=== PATIENT | female | born 1995 | race Hispanic/Latino ===

== ENCOUNTER 2018-01-04 13:19 | Emergency (ER) | payer SELFPAY, OTHER ==
[2018-01-04 14:11] LABS: #Eosinphils 0.5 thou/uL (0.0-0.7); #Lymphocytes 1.1 thou/uL (1.20-3.40); #Monocytes 0.3 thou/uL (0.11-0.59); #Neutrophils 2.3 thou/uL (1.40-6.50); %Basophils 1.1 % (0.0-1.0); %Eosinophils 11.3 % (0.0-10.0); %Lymphocytes 26.2 % (21.0-51.0); %Monocytes 6.8 % (0.0-10.0); %Neutrophils 54.7 % (42.0-75.0); Hemoglobin 12.5 g/dL (12.0-16.0); Mean Corpuscular HGB CONC 33.6 g/dL (32.0-36.0); Mean Corpuscular Hemoglobin 31.2 pg (27.0-31.0); Mean Corpuscular Volume 92.9 fl (81.0-99.0); Mean Platelet Volume 7.7 fL (7.4-10.4); Platelet Count 272 thou/uL (130-400); RBC Distribution Width 12.2 % (11.5-14.5); White Blood Cell (WBC) Count 4.2 thou/uL (4.8-10.8)
[2018-01-04 14:17] LABS: Bilirubin Negative (Negative); Blood, Urine Large (Negative); Clarity CLEAR (Clear); Glucose, Urine (Dipstick) Negative (Negative); Leukocyte Negative (Negative); Nitrite Negative (Negative); Protein, Urine (Dipstick) Negative (Neg-Trace); Specific Gravity, Urine 1.007 (1.002-1.036); Urobilinogen 0.2 mg/dL (0.2-1.0)
[2018-01-04 14:22] LABS: Bacteria/HPF Rare-Few HPF (None Seen); Hyaline Casts/LPF 0-3 HYALINE CAST LPF (0-3 Hyaline); Pathc Cast-AUWi Flag 0.27 (0-2.49); RBC/HPF 0-3 HPF (0-3); Squamous Epithelial 0-3 HPF (0-3); WBC/HPF 0-3 HPF (0-3)
--- NOTE | 2018-01-04 14:56 | ULT ---
PELVIC ULTRASOUND WITH DOPPLER: (Transabdominal, transvaginal, Lugo scale, color flow, and spectral Doppler) Date: 01/04/18 HISTORY: Vaginal bleeding. FINDINGS: The uterus measures 7.9 x 4.2 x 6.9 cm. A single intrauterine gestation is seen with measurements cor responding to an estimated gestational age of 7 weeks and 5 days. The crown-rump length measures 0.94 cm and gestational sac diameter measures 3.24 cm. A yolk sac is not visualized. No heart tones are identified. No free fluid is seen in the cul-de-sac. The right ovary is visualized and demonstrates flow. The lef t ovary is not visualized. IMPRESSION: Single intrauterine gestation, 7 weeks and 5 days estimated gestational age, with findings suggestive of first trimester demise. Correlation with serial serum beta HCGs and follow-up ultrasound is recommended. POS: NIKI
== END 2018-01-04 16:24 | disposition home or self-care (01) ==
LOC: ERS 13:19
DX: O20.0 Threatened abortion (principal); O99.341 Other mental disorders complicating pregnancy, first trimester; F31.9 Bipolar disorder, unspecified
CPT/HCPCS: 36415; 76856; 81003; 81015; 84702; 85025; 86900; 86901

== ENCOUNTER 2018-01-05 17:58 | Emergency (ER) | payer SELFPAY ==
[2018-01-05 18:47] LABS: #Eosinphils 0.4 thou/uL (0.0-0.7); #Lymphocytes 1.5 thou/uL (1.20-3.40); #Monocytes 0.5 thou/uL (0.11-0.59); %Basophils 0.5 % (0.0-1.0); %Eosinophils 6.8 % (0.0-10.0); %Lymphocytes 23.6 % (21.0-51.0); %Monocytes 7.1 % (0.0-10.0); Hemoglobin 12.1 g/dL (12.0-16.0); Mean Corpuscular HGB CONC 33.9 g/dL (32.0-36.0); Mean Corpuscular Volume 94.3 fl (81.0-99.0); Platelet Count 272 thou/uL (130-400); RBC Distribution Width 12.4 % (11.5-14.5); Red Blood Cell (RBC) Count 3.79 mill/uL (4.20-5.40); White Blood Cell (WBC) Count 6.5 thou/uL (4.8-10.8)
[2018-01-05] MEDS ORDERED: Ondansetron HCl/PF 4 MG/2 ML Vial ONE (19:17)
[2018-01-05 19:30] LABS: Bilirubin Negative (Negative); Blood, Urine Large (Negative); Clarity CLOUDY (Clear); Glucose, Urine (Dipstick) Negative (Negative); Leukocyte Negative (Negative); Nitrite Negative (Negative); Protein, Urine (Dipstick) 30 mg/dL (Neg-Trace); pH, Urine 7.5 (5.0-9.0)
[2018-01-05 19:33] LABS: Bacteria/HPF 1+ HPF (None Seen); Hyaline Casts/LPF 0-3 HYALINE CAST LPF (0-3 Hyaline); Pathc Cast-AUWi Flag 0.13 (0-2.49)
[2018-01-05 19:34] LABS: Yeast-AUWi Flag 28.7 (0-25.0)
[2018-01-05 19:42] LABS: Yeast-All Forms None Seen HPF (None Seen)
== END 2018-01-05 19:52 | disposition home or self-care (01) ==
LOC: ERS 17:58
DX: O03.9 Complete or unspecified spontaneous abortion without complication (principal); J45.909 Unspecified asthma, uncomplicated
CPT/HCPCS: 36415; 81003; 81015; 84702; 85025; 86850; 86900; 86901; 96374; 96375; J2270; J2405

== ENCOUNTER 2018-01-28 21:30 | Emergency (ER) | payer SELFPAY, OTHER ==
[2018-01-28 22:28] LABS: #Eosinphils 0.3 thou/uL (0.0-0.7); #Lymphocytes 1.5 thou/uL (1.20-3.40); #Monocytes 0.4 thou/uL (0.11-0.59); #Neutrophils 3.2 thou/uL (1.40-6.50); %Basophils 0.7 % (0.0-1.0); %Lymphocytes 27.4 % (21.0-51.0); %Monocytes 7.2 % (0.0-10.0); %Neutrophils 59.8 % (42.0-75.0); Hemoglobin 11.6 g/dL (12.0-16.0); Mean Corpuscular HGB CONC 34.1 g/dL (32.0-36.0); Mean Corpuscular Hemoglobin 31.2 pg (27.0-31.0); Mean Corpuscular Volume 91.5 fl (81.0-99.0); Mean Platelet Volume 7.3 fL (7.4-10.4); Platelet Count 289 thou/uL (130-400); RBC Distribution Width 12.1 % (11.5-14.5); Red Blood Cell (RBC) Count 3.71 mill/uL (4.20-5.40); White Blood Cell (WBC) Count 5.4 thou/uL (4.8-10.8)
[2018-01-28 22:32] LABS: Bilirubin Negative (Negative); Blood, Urine Large (Negative); Clarity CLOUDY (Clear); Glucose, Urine (Dipstick) Negative (Negative); Leukocyte Small (Negative); Nitrite Negative (Negative); Protein, Urine (Dipstick) 30 mg/dL (Neg-Trace); Specific Gravity, Urine 1.019 (1.002-1.036)
[2018-01-28 22:34] LABS: Bacteria/HPF 1+ HPF (None Seen); Hyaline Casts/LPF 0-3 HYALINE CAST LPF (0-3 Hyaline); Pathc Cast-AUWi Flag 0.27 (0-2.49); Pregnancy Test - Urine (BHCG) POSITIVE (Negative); Pregu Control Background? CLEAR/WHITE (CLR/WHITE); Pregu Control Bar Appear? YES (CONTROL BAR); RBC/HPF GREATER THAN 50-TNTC HPF (0-3); Specific Gravity 1.019 (1.002-1.036)
[2018-01-28 22:48] LABS: ALT (SGPT) 11 U/L (8-55); AST (SGOT) 14 U/L (5-34); Albumin 4.6 g/dL (3.5-5.0); Alkaline Phosphatase 60 U/L (40-150); Anion Gap 12 mmol/L (10-20); BUN (Urea Nitrogen) 9 mg/dL (7.0-18.7); Bilirubin, Total 0.3 mg/dL (0.2-1.2); Calc. Creatinine Clearance 0 mL/min (70-130); Calcium 9.7 mg/dL (7.8-10.44); Carbon Dioxide 25 mmol/L (22-29); Chloride 105 mmol/L (98-107); Estimated GFR-MDRD Greater than 90; Globulin 3.1 g/dL (2.4-3.5); Glucose 83 mg/dL (70-105); Lipase 33 U/L (8-78); Potassium 3.9 mmol/L (3.5-5.1); Protein, Total 7.7 g/dL (6.0-8.3); Sodium 138 mmol/L (136-145)
--- NOTE | 2018-01-29 00:01 | ULT ---
PELVIC ULTRASOUND Technique: Transabdominal and endovaginal ultrasound of the pelvis performed. History: Vaginal bleeding. Recently diagnosed with spontaneous AB. Positive test. FINDINGS: Uterus has a normal appearance. The endometrial stripe is upper normal at 9-10 mm. Both ovaries are i dentified and appear unremarkable. No evidence of intrauterine identified. Color doppler wi th spectral analysis demonstrates blood flow to both ovaries. There is free fluid in the cul-de-sac. Color doppler with spectral analysis demonstrates blood flow to both ovaries. IMPRESSION: No evidence of intrauterine . Free fluid in the cul-de-sac. Ectopic is not exclude d on this exam. Recommend serial HCG levels and close follow up. POS: SHIRA
== END 2018-01-29 00:33 | disposition home or self-care (01) ==
LOC: ERS 21:30
DX: O03.6 Delayed or excessive hemorrhage following complete or unspecified spontaneous abortion (principal); J45.909 Unspecified asthma, uncomplicated
CPT/HCPCS: 36415; 76856; 80053; 81003; 81015; 81025; 83690; 84702; 85025; 87086

== ENCOUNTER 2018-06-16 18:25 | Emergency (ER) | payer OTHER, SELFPAY ==
[2018-06-16 18:53] LABS: Bilirubin Negative (Negative); Blood, Urine Negative (Negative); Clarity CLEAR (Clear); Glucose, Urine (Dipstick) Negative (Negative); Leukocyte Negative (Negative); Nitrite Negative (Negative); Protein, Urine (Dipstick) Negative (Neg-Trace); Specific Gravity, Urine 1.019 (1.002-1.036); Urobilinogen 0.2 mg/dL (0.2-1.0)
[2018-06-16 18:55] LABS: Pregnancy Test - Urine (BHCG) Negative (Negative); Pregu Control Background? CLEAR/WHITE (CLR/WHITE); Pregu Control Bar Appear? YES (CONTROL BAR); Specific Gravity 1.019 (1.002-1.036)
[2018-06-16 18:56] LABS: #Eosinphils 0.4 thou/uL (0.0-0.7); #Lymphocytes 1.8 thou/uL (1.20-3.40); #Monocytes 0.5 thou/uL (0.11-0.59); #Neutrophils 3.9 thou/uL (1.40-6.50); %Basophils 0.7 % (0.0-1.0); %Eosinophils 6.5 % (0.0-10.0); %Lymphocytes 26.9 % (21.0-51.0); %Neutrophils 58.9 % (42.0-75.0); Hemoglobin 13.1 g/dL (12.0-16.0); Mean Corpuscular HGB CONC 34.7 g/dL (32.0-36.0); Mean Corpuscular Hemoglobin 30.8 pg (27.0-31.0); Mean Corpuscular Volume 88.8 fL (78.0-98.0); Mean Platelet Volume 7.6 fL (7.4-10.4); Platelet Count 247 thou/uL (130-400); Red Blood Cell (RBC) Count 4.24 mill/uL (4.20-5.40); White Blood Cell (WBC) Count 6.7 thou/uL (4.8-10.8)
[2018-06-16 19:19] LABS: ALT (SGPT) 26 U/L (8-55); AST (SGOT) 25 U/L (5-34); Albumin 4.6 g/dL (3.5-5.0); Alkaline Phosphatase 66 U/L (40-150); Anion Gap 13 mmol/L (10-20); BUN (Urea Nitrogen) 14 mg/dL (7.0-18.7); Bilirubin, Total 0.3 mg/dL (0.2-1.2); Calc. Creatinine Clearance 0 mL/min (70-130); Calcium 9.7 mg/dL (7.8-10.44); Carbon Dioxide 21 mmol/L (22-29); Chloride 107 mmol/L (98-107); Estimated GFR-MDRD Greater than 90; Globulin 3.2 g/dL (2.4-3.5); Glucose 96 mg/dL (70-105); Lipase 35 U/L (8-78); Potassium 3.8 mmol/L (3.5-5.1); Protein, Total 7.8 g/dL (6.0-8.3); Sodium 137 mmol/L (136-145)
[2018-06-16] MEDS ORDERED: Ibuprofen 200 MG TAB ONE (19:19)
--- NOTE | 2018-06-16 20:38 | ULT ---
PELVIC ULTRASOUND: History: Pelvic pain. History of right ovarian cyst. Sudden onset of right lower quadrant pain. FINDINGS: Real-time imaging of the pelvis was obtained transabdominally. This shows a uterus measuring 8.5 cm i n length. The endometrium is 6-7 mm. The right and left ovaries are normal in size and appearance. There is a mild amount of free fluid se en. DOPPLER EVALUATION WITH SPECTRAL ANALYSIS: Normal flow is shown to both adnexa. IMPRESSION: Essentially unremarkable pelvic ultrasound. POS: SHIRA
== END 2018-06-16 20:40 | disposition home or self-care (01) ==
LOC: ERS 18:25
DX: N83.201 Unspecified ovarian cyst, right side (principal); J45.909 Unspecified asthma, uncomplicated
CPT/HCPCS: 36415; 76856; 80053; 81003; 81025; 83690; 85025

== ENCOUNTER 2019-07-26 06:56 | Day surgery (SDC) | payer SELFPAY ==
[2019-07-26 07:32] VITALS: BMI 19.3
[2019-07-26] MEDS ORDERED: hydrALAZINE 20 MG/ML VIAL SLOW IVP PRN (07:48)
--- NOTE | 2019-07-26 07:51 | PDOC.EVN ---
Event Note - Event Note Event Note: OBGYN Attending Note Patient first seen by Dr Gaines Patient in Triage B Arrived in custody from skilled nursing CC: abdominal pain at 35 weeks (records not here) HPI: Patient of the [facility], currently in skilled nursing, brought for eval of "abdominal pain". 23 yo at 35 weeks 4 days by her stated EDC of 08/26, CS x1. States diffuse abdominal "burtning" but no real CTX, no VB, no LOF. No fevers, denies recent trauma. Past Surgical: CS Allergies: Amoxicillin Past med: none Physical: VSS Afebrile CX pending Monitors: 140s reactive, no ctx o toco A/P: 35 weeks pror CS with nonspecific LAP, no records here: 1. we will check UA 2. CMP 3. OB sono for dates 4. RUQ sono
[2019-07-26] MEDS ORDERED: Acetaminophen 500 MG TAB PO SCH (08:00)
--- NOTE | 2019-07-26 08:01 | PDOC.LDHP ---
Labor and Delivery H&P Chief complaint: abdominal pain HPI: 23 yo @ 35.4 wks presents from senior living for abdominal pain that began 5 minutes after she arrived. Patient at [facility] but no records available. She reports JOSIAH of 08/26. Abdominal pain began at 0100, 06/28. Pain described as lower abdominal cramping, along with feelings of abdominal burning and pain in center of abdomen. She has had this pain before but it has been a while. Denies VB, VD , dysuria, N/V, diarrhea. Tolerating PO intake well. Current gestational age (weeks): 35 Due date: 08/26/19 Grav: 3 Para: 1 Current complications: none Current medications: pre-kisha vitamins Previous surgical history: low tranverse CS Allergies/Adverse Reactions: Allergies Allergy/AdvReac Type Severity Reaction Status Date / Time amoxicillin Allergy Mild Rash Verified 07/26/19 07:29 Social history: none - Physical Exam Vital signs reviewed and normal: yes General: NAD, resting Heart: RRR Lungs: nonlabored breathing Abdomen: NTTP Extremeties: no edema FHT: category 1 (138/mod variability) [place] contractions every: no contractions - Plan Plan: observation in L&D -: Abdominal pain - symptoms nonspecific - will give tylenol for pain - pending RUQ US to rule out gallstone etiology and US for EFW for dating as well since no records available - CMP and UA ordered - nurse to perform cervical check Will monitor on L&D and follow up pending these results.
[2019-07-26 08:32] LABS: Bilirubin Negative (Negative); Blood, Urine Negative (Negative); Clarity Turbid (Clear); Glucose, Urine (Dipstick) Normal (Negative); Leukocyte 500 Leu/uL (Negative); Mucous/LPF Rare LPF (<2+); Nitrite Negative (Negative); Protein, Urine (Dipstick) 50 mg/dL (Neg-Trace)
[2019-07-26 08:50] LABS: Bacteria/HPF 3+ HPF (None Seen); Yeast-Budding Rare HPF (None Seen)
--- NOTE | 2019-07-26 09:44 | ULT ---
US Gallbladder RUQ History: Abdominal pain Comparison: Gallbladder ultrasound 2015 Findings: The pancreas is not well seen. Visualized portion of the IVC is unremarkable. Moderate right-sided hydroureteronephrosis. Cholelithiasis without cholecystitis. Common bile duct me asures 2 mm, normal. Liver measures 15.6 cm with diffuse increased echotexture. Impression: 1. Moderate right hydroureteronephrosis. 2. Cholelithiasis without cholecystitis.
--- NOTE | 2019-07-26 09:50 | ULT ---
EXAM: US OB Ltd PROVIDED CLINICAL HISTORY: Estimated weight COMPARISON: None FINDINGS: A single live intrauterine gestation in vertex presentation is demonstrated, with heart rate of 139 b pm documented. The placenta is anterior in location without evidence for previa. The cervix is obscured. Estimated gestational age based on today's examination is 36 weeks 4 days. Estimated weight is 2876 +/- 426 g. anatomic survey was not performed. Amniotic fluid appears adequate and (ZOE 13.2). biometry: BPD: 36 weeks 3 days 9.1 cm Head circumference: 37 weeks 3 days 32.9 cm Abdominal circumference: 36 weeks 0 days 32.02 cm Femur length: 36 weeks 0 days 7.01 cm IMPRESSION: Single live intrauterine gestation, 36 weeks 4 days by ultrasound.
[2019-07-26 09:58] LABS: ALT (SGPT) 7 U/L (8-55); AST (SGOT) 11 U/L (5-34); Albumin 3.5 g/dL (3.5-5.0); Alkaline Phosphatase 136 U/L (40-150); Anion Gap 12 mmol/L (10-20); BUN (Urea Nitrogen) 8 mg/dL (7.0-18.7); Bilirubin, Total 0.4 mg/dL (0.2-1.2); Calc. Creatinine Clearance 124 mL/min (70-130); Calcium 8.8 mg/dL (7.8-10.44); Carbon Dioxide 20 mmol/L (22-29); Chloride 108 mmol/L (98-107); Estimated GFR-MDRD Greater than 90; Globulin 2.6 g/dL (2.4-3.5); Glucose 72 mg/dL (70-105); Potassium 3.8 mmol/L (3.5-5.1); Protein, Total 6.1 g/dL (6.0-8.3); Sodium 136 mmol/L (136-145)
--- NOTE | 2019-07-26 10:34 | PDOC.EVN ---
Event Note - Event Note Event Note: UA showed 2+ bacteria and LE although pt did have 7-10 squamous cells. Sent for a culture and will empirically treat with Keflex 500mg PO q12h for three days. CMP wnl and abdominal US did show evidence of stones but no sign of cholecystitis, US wnl. Addendum - Attending - Attending Attestation Date/Time: 07/26/19 1041 I personally evaluated the patient and discussed the management with Dr. Anglin. I agree with the History, Examination, Assessment and Plan documented above.
== END 2019-07-26 10:25 | disposition home or self-care (01) ==
LOC: L&D/OP 06:56 → EEVIPCON 06:56 → L&D/OP 10:25
PROVIDERS: ATTEND Obstetrics & Gynecology
DX: O99.89 Other specified diseases and conditions complicating pregnancy, childbirth and the puerperium (principal); N13.30 Unspecified hydronephrosis; O99.613 Diseases of the digestive system complicating pregnancy, third trimester; K80.20 Calculus of gallbladder without cholecystitis without obstruction; Z3A.35 35 weeks gestation of pregnancy; Z88.0 Allergy status to penicillin
CPT/HCPCS: 36415; 76705; 76815; 80053; 81001; 87086; 99284

== ENCOUNTER 2019-08-05 02:00 | Day surgery (SDC) | payer OTHER ==
[2019-08-05 02:24] VITALS: BMI 29.0
--- NOTE | 2019-08-05 03:07 | PDOC.FPROB ---
FMR OB H&P: HPI - History of Present Illness Chief Complaint: vaginal discharge, labor check History of Present Illness: 23yo at 37 wks by LMP C/w 11.2wk US presents for sxs of dysuria, vaginal pruritus, and spotting x1 day. Also endorses contractions occurring approx every hour for past 3 days. States bleeding was x2 when wiping after urinating. Has h/o yeast infx during , treated with Monostat. States discharge is similar to past, no foul odor, no change in color. Endorses good movement, no LOF. Her contractions are mild in nature, associated with lower back pain. She denies recent sexual activity, no new partners since conception. Primary Care Physician: FUNMILAYO Matias FMR OB H&P: Current - Care : 3 Para: 1011 Gestational age: 37 wks Due date: 08/26/2019 Dating Criteria: LMP/11.2 wk sono - OB Labs Blood type: A RH: positive Antibody Screen: negative HIV: negative RPR: negative HepBsAg: negative Rubella: immune Quad screen: unknown Gonorrhea: negative Chlamydia: negative Pap Smear: 01/01/19- Negative - Anatomy Survey Anatomy survey: S=D, Unable to get good visualized profile x2. 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 Pap during NILM. - Surgical History Sx History: x1 - Social History Social History: Denies tob, EtOH, or illicits. - Family History Family History: Maternal Aunts and Uncles-HTN. No known NATURAL GAS FIELD PROCESSING SUPERVISOR or congenital pediatric illnesses in family FMR OB H&P: Medications - Current Home Medications: Medication Instructions Recorded Confirmed Type Miconazole Nitrate [Miconazole 7 1 appful VG HS 7 Days #1 tube 08/05/19 Rx Vaginal Cream] Vit No.126/Iron/Folic 1 capsule PO DAILY #30 tablet 08/05/19 Rx [Classic ] Allergies/Adverse Reactions: Allergies Allergy/AdvReac Type Severity Reaction Status Date / Time No Known Allergies Allergy Verified 07/26/19 10:31 FMR OB H&P: ROS - Review of Systems General: denies: fever/chills, weight/appetite/sleep changes, fatigue, recent trauma Eyes: denies: vision changes ENT: denies: nasal congestion, rhinorrhea Cardiovascular: denies: chest pain, palpitation, edema Respiratory: denies: cough, congestion, shortness of breath Gastrointestinal: denies: abdominal pain, nausea, vomiting, diarrhea, constipation, bright red blood, dark black tarry stools Genitourinary (Female): reports: dysuria (x1 day), vaginal discharge (thick white), vaginal pain (pressure), vaginal bleeding (spotting x2 while wiping). denies: incontinence, hematuria, polyuria, hesitancy Musculoskeletal: reports: pain (lower back pain) Neurologic: denies: numbness Integumentary: denies: itching, rash Hematologic/Lymphatic: denies: prolonged or excessive bleeding FMR OB H&P: Vital Signs - Maternal Vital signs: BP 105/59 - Heart Tones Baseline: 120 Variability: moderate Acceleration: present Deceleration: absent (reactive strip) [place] contractions every: none FMR OB H&P: Physical Exam - Physical Exam General: NAD, awake, alert and oriented HEENT: normocephalic and atraumatic, MMM Neck: supple, trachea midline Heart: RRR, normal S1/S2, no murmurs/rubs/gallops, pulses present, no edema General: CTAB, no respiratory distress, good air movement, no rales/rhonchi, no wheezing Abdomen: soft, gravid, non-tender, bowel sound present Musculoskeletal: pulses present Neurological: no focal deficit Skin: no rash Lymphatic: no unusual bruising or bleeding Psychiatric: normal mood and affect - Pelvic Exam Vulva: normal hair distribution, no masses, no lesions, no discharge, no blood, normal rugae Cervix: no masses, no lesions, no blood Deviation from normal: thick white vaginal discharge, significant discomfort with spec exam. SVE: 1/high/thick FMR OB H&P: A/P - Problem List (1) Third trimester Current Visit: Yes Status: Acute Code(s): Z34.93 - ENCNTR FOR SUPRVSN OF NORMAL PREG, UNSP, THIRD TRIMESTER (2) Vaginal candidiasis Current Visit: Yes Status: Acute Code(s): B37.3 - CANDIDIASIS OF VULVA AND VAGINA (3) Dysuria during Current Visit: Yes Status: Acute Code(s): O26.899 - OTH RELATED CONDITIONS, UNSPECIFIED TRIMESTER; R30.0 - DYSURIA Disposition: 23yo at 37 wks by LMP C/w 11.2wk US presents for sxs of dysuria, vaginal pruritus, and spotting x1 day. #3rd trimester IUP - Reactive strip, no contractions, cervix closed, no dilation - continue routine care, continue PNV - f/u with PNC - Dr. Matias as previously directed #Vaginal Candidiasis - h/o tx prior in , thick white discharge - Monistat 7 RX - VP3 obtained, will notify pt of results #Dysuria - Will obtain UA Dispo: UA returned clean. Rx sent for PNV and Monistat 7. Routine return labor precautions given. F/u with PNC as directed. Will notify of VP3 results if abnormal.
[2019-08-05] MEDS ORDERED: Acetaminophen 500 MG TAB PO SCH (03:45)
[2019-08-05 03:53] LABS: Bacteria/HPF None Seen HPF (None Seen); Bilirubin Negative (Negative); Blood, Urine Negative (Negative); Clarity Clear (Clear); Glucose, Urine (Dipstick) Normal (Negative); Leukocyte Negative Leu/uL (Negative); Nitrite Negative (Negative); Protein, Urine (Dipstick) Negative (Neg-Trace); RBC/HPF 0-3 HPF (0-3); Squamous Epithelial 0-3 HPF (0-3); Urobilinogen Normal mg/dL (Less than 2); WBC/HPF 0-3 HPF (0-3)
[2019-08-05 03:55] LABS: Urine Culture Reflex No No
== END 2019-08-05 04:28 | disposition home or self-care (01) ==
LOC: L&D/OP 02:00
PROVIDERS: ATTEND Obstetrics & Gynecology
DX: O98.813 Other maternal infectious and parasitic diseases complicating pregnancy, third trimester (principal); B37.3 Candidiasis of vulva and vagina; O26.893 Other specified pregnancy related conditions, third trimester; R30.0 Dysuria; O99.513 Diseases of the respiratory system complicating pregnancy, third trimester; J45.909 Unspecified asthma, uncomplicated; O99.353 Diseases of the nervous system complicating pregnancy, third trimester; F81.9 Developmental disorder of scholastic skills, unspecified; Z3A.37 37 weeks gestation of pregnancy
CPT/HCPCS: 51701; 81001; 87480; 87510; 87660; 99284

== ENCOUNTER 2019-08-11 12:15 | Day surgery (SDC) | payer OTHER ==
--- NOTE | 2019-08-11 13:53 | PDOC.FPROB ---
FMR OB H&P: HPI - History of Present Illness Chief Complaint: vaginal discharge History of Present Illness: 23yo at 37.6 wks by LMP c/w 11.2wk US presents for sxs of dysuria, thick white vaginal discharge with intermittent spotting, and pelvic pressure. Sxs have been ongoing for past few weeks, was seen 08/05 for similar sxs and VP3 positive for candidiasis, and states sxs have actually improved since then with use of Monistat 7, which she currently has 2 more days of. Spotting is with wiping after urination. H/o multiple yeast infx during , all tx'ed with monistate. Endorses good movement, no LOF, no consistent or sustained contractions. Does endorse lower back pain and intermittant cramping. Denies recent sexual activity, no new partners. Primary Care Physician: FUNMILAYO Matias FMR OB H&P: Current - Care : 3 Para: 1011 Gestational age: 37.6 Due date: 08/26/19 Dating Criteria: LMP c/w sono at 11.2 - OB Labs Blood type: A RH: positive Antibody Screen: negative HIV: negative RPR: negative HepBsAg: negative Rubella: immune Quad screen: unknown Gonorrhea: negative Chlamydia: negative Pap Smear: 01/01/19 - NILM - Anatomy Survey Anatomy survey: S=D, Unable to get good visualized profile x2. 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 Pap during NILM. - Surgical History Sx History: C/s x1 - Social History Social History: Denies tob, EtOH, or illicits. - Family History Family History: Maternal Aunts and Uncles-HTN. No known SENIOR CIVIL ENGINEER or congenital pediatric illnesses in family FMR OB H&P: Medications - Current Home Medications: Medication Instructions Recorded Confirmed Type Miconazole Nitrate [Miconazole 7 1 appful VG HS 7 Days #1 tube 08/05/19 Rx Vaginal Cream] Vit No.126/Iron/Folic 1 capsule PO DAILY #30 tablet 08/05/19 Rx [Classic ] Allergies/Adverse Reactions: Allergies Allergy/AdvReac Type Severity Reaction Status Date / Time No Known Allergies Allergy Verified 07/26/19 10:31 FMR OB H&P: ROS - Review of Systems General: denies: fever/chills, weight/appetite/sleep changes, night sweats Eyes: denies: eye pain, vision changes ENT: denies: nasal congestion, rhinorrhea, frequent nose bleed, sore throat Cardiovascular: denies: chest pain, palpitation, edema Respiratory: reports: shortness of breath (mild with increased gestational age, no acute changes). denies: cough, congestion Gastrointestinal: denies: abdominal pain, indigestion, bloating, cramping, nausea, vomiting, diarrhea, constipation Genitourinary (Female): reports: dysuria, vaginal discharge (thick white, improved from 1 week ago), vaginal bleeding (spotting with wiping), vaginal pressure (pelvic pressure). denies: incontinence, hematuria, polyuria, hesitancy Musculoskeletal: denies: pain, stiffness, tenderness Neurologic: denies: numbness, syncope, seizures Integumentary: denies: rash FMR OB H&P: Vital Signs - Maternal Vital signs: BP 102/68, 99% on RA - Heart Tones Baseline: 120 (reactive strip) Variability: moderate Acceleration: present Deceleration: absent FMR OB H&P: Physical Exam - Physical Exam General: NAD, awake, alert and oriented HEENT: MMM, conjunctiva clear Neck: supple, trachea midline Heart: RRR, normal S1/S2, no murmurs/rubs/gallops, pulses present, no edema General: CTAB, no respiratory distress, good air movement, no rales/rhonchi, no wheezing Abdomen: soft, gravid, non-tender, bowel sound present Neurological: no focal deficit Skin: no rash Psychiatric: intact recent and remote memory - Pelvic Exam Vulva: no masses, no lesions Deviation from normal: thick white vaginal discharge, decreased from previous exam 1 week ago SVE: 1/high/thick FMR OB H&P: A/P - Problem List (1) Third trimester Current Visit: Yes Status: Acute Code(s): Z34.93 - ENCNTR FOR SUPRVSN OF NORMAL PREG, UNSP, THIRD TRIMESTER (2) Vaginal candidiasis Current Visit: Yes Status: Acute Code(s): B37.3 - CANDIDIASIS OF VULVA AND VAGINA Disposition: 23yo at 37.6 wks by LMP c/w 11.2wk US presents for sxs of dysuria, thick white vaginal discharge, pelvic pressure. #3rd trimester IUP - Reactive strip, no contractions, cervix closed, no dilation - continue routine care, continue PNV - f/u with PNC - Dr. Matias as previously directed (appt for this 08/14) #Vaginal Candidiasis - h/o tx prior in , thick white discharge; however improved from previous exam and sxs improved per pt - VP3 last week + candidiasis - Rec continue Monistat 7 to finish course, f/u with PNC as directed #Dysuria - Will obtain UA and notify of results if abnormal Dispo: Pt was placed on the monitor, no contractions, reactive strip, cervix closed. Vaginal discharge improved. Told to finish course of monistat 7 and f/u with PNC this with previous appt. Routine labor precautions given as well as return precautions. Pt voiced agreement and understanding of the discharge plan and was eager to go home.
[2019-08-11] MEDS ORDERED: hydrALAZINE 20 MG/ML VIAL SLOW IVP PRN (14:04)
[2019-08-11 14:48] LABS: Bilirubin Negative (Negative); Blood, Urine Negative (Negative); Clarity Turbid (Clear); Glucose, Urine (Dipstick) Normal (Negative); Leukocyte 500 Leu/uL (Negative); Nitrite Negative (Negative); Protein, Urine (Dipstick) 20 mg/dL (Neg-Trace); Squamous Epithelial 21-50 HPF (0-3); Transitional Epithelial 0-3 HPF (None Seen); Urobilinogen Normal mg/dL (Less than 2)
[2019-08-11 14:55] LABS: Bacteria/HPF 1+ HPF (None Seen); Yeast-Budding 1+ HPF (None Seen)
[2019-08-11 14:58] LABS: Urine Culture Reflex No No
== END 2019-08-11 14:15 | disposition home or self-care (01) ==
LOC: L&D/OP 12:15
PROVIDERS: ATTEND Obstetrics & Gynecology
DX: O99.89 Other specified diseases and conditions complicating pregnancy, childbirth and the puerperium (principal); N89.8 Other specified noninflammatory disorders of vagina; R10.2 Pelvic and perineal pain; O98.813 Other maternal infectious and parasitic diseases complicating pregnancy, third trimester; B37.3 Candidiasis of vulva and vagina; O99.513 Diseases of the respiratory system complicating pregnancy, third trimester; J45.20 Mild intermittent asthma, uncomplicated; Z3A.37 37 weeks gestation of pregnancy
CPT/HCPCS: 36415; 81001; 87086

== ENCOUNTER 2019-08-22 09:21 | Inpatient (IN) | payer OTHER ==
--- NOTE | 2019-08-21 17:45 | PDOC.FPROB ---
FMR OB H&P: HPI - History of Present Illness Chief Complaint: scheduled repeat section Indentification: 24 y/o @ 39.3 wks by LMP/11.2 History of Present Illness: Patient denies ctx, LOF, vaginal bleeding, vaginal d/c. Endorses movement. Primary Care Physician: Kaley Matias MD - Clinic FMR OB H&P: Current - Care : 3 Para: 1011 Gestational age: 39w3d - OB Labs Blood type: A RH: positive Antibody Screen: negative HIV: negative RPR: negative HepBsAg: negative Rubella: immune Gonorrhea: negative Chlamydia: negative 1 hour gtt: Never completed by patient GBS: negative FMR OB H&P: History - Past Medical History PMH: asthma, mild cognitive disability - OB History OB History: 1 prior pLTCS at term for NRFHT - TRAUMA COUNSELLOR History TRAUMA COUNSELLOR History: NILM - Surgical History Sx History: prior section - Social History Social History: Denies tobacco, EtOH, or drug use - Family History Family History: Denies FMR OB H&P: Medications - Current Home Medications: Medication Instructions Recorded Confirmed Type Vit No.126/Iron/Folic 1 capsule PO DAILY #30 tablet 08/05/19 08/22/19 Rx [Classic ] Allergies/Adverse Reactions: Allergies Allergy/AdvReac Type Severity Reaction Status Date / Time No Known Allergies Allergy Verified 08/22/19 10:32 FMR OB H&P: ROS - Review of Systems General: denies: fever/chills, fatigue ENT: denies: rhinorrhea, sore throat Cardiovascular: denies: chest pain, edema Respiratory: denies: cough, shortness of breath Gastrointestinal: denies: abdominal pain, vomiting Genitourinary (Female): denies: dysuria, hematuria Musculoskeletal: denies: pain, tenderness Neurologic: denies: numbness, weakness Integumentary: denies: itching, rash Hematologic/Lymphatic: denies: prolonged or excessive bleeding, enlarged lymph nodes Psychological: denies: depression, anxiety FMR OB H&P: Vital Signs - Maternal Vital signs: BP102/62, HR 65, Weight 83kg - Heart Tones Baseline: 135 Variability: moderate Acceleration: present Deceleration: absent Category: category 1 [place] contractions every: none FMR OB H&P: Physical Exam - Physical Exam General: NAD, awake, alert and oriented HEENT: EOMI, MMM, grossly normal vision, grossly normal hearing Neck: supple, no LAD Heart: RRR, normal S1/S2, no murmurs/rubs/gallops, pulses present, no edema General: CTAB, no respiratory distress, no wheezing Abdomen: soft, gravid, non-tender Musculoskeletal: normal gait and station, FROM in all four extremities Neurological: no focal deficit Skin: good tugor, capillary refill <2 seconds Psychiatric: intact recent and remote memory, normal mood and affect - Pelvic Exam Presentation: cephalic FMR OB H&P: A/P - Problem List (1) H/O section Status: Acute Code(s): Z98.891 - HISTORY OF UTERINE SCAR FROM PREVIOUS SURGERY Assessment and Plan: Admit for scheduled rLTCS Bedside sono performed with cephalic presentation, anterior placenta. -Consult anesthesia -NPO -LR @ 125 -Ancef 2g - monitoring (2) Third trimester Status: Acute Code(s): Z34.93 - ENCNTR FOR SUPRVSN OF NORMAL PREG, UNSP, THIRD TRIMESTER Assessment and Plan: Plan as above Disposition: Admit to L&D Discussion: Date/Time: 08/21/19 7710 This H&P was discussed with Dr. Smith who agrees with the above documentation and plan. Signature: Kaley Matias MD, PGY-3 Addendum - Attending - Attending Attestation Date/Time: 08/22/19 1211 I personally evaluated the patient and discussed the management with Dr. Matias. I agree with the History, Examination, Assessment and Plan documented above with any addition or exceptions noted below. Discussed r/b/a/i of repeat csection including pain, bleeding, infection, damage to bowel/bladder/other internal organs, need for tranfusion, reoperation , and prolonged hospitalization, after Dr. Matias had already discussed. She voiced understanding and agreement and desired to proceed.
[2019-08-22] MEDS: Lactated Ringer's 1,000 ML IV SCH ×2 (10:10→11:44)
[2019-08-22] MEDS ORDERED: CEFAZOLIN 2 GM in Premix Bag 1 BAG IVPB SCH (10:19)
[2019-08-22] MEDS ORDERED: Bicitra 30 ML UDCUP PO SCH (10:19)
[2019-08-22] MEDS ORDERED: Promethazine HCl 25 MG/ML VIAL IM PRN ×2 (10:19→13:10)
[2019-08-22] MEDS ORDERED: hydrALAZINE 20 MG/ML VIAL SLOW IVP PRN ×2 (10:19→13:55)
[2019-08-22] MEDS ORDERED: Ondansetron PF 4 MG/2 ML Vial IVP PRN ×2 (10:19→13:10)
[2019-08-22 10:32] LABS: Hemoglobin 10.8 g/dL (12.0-16.0); Mean Corpuscular HGB CONC 34.1 g/dL (32.0-36.0); Mean Corpuscular Hemoglobin 29.9 pg (27.0-31.0); Mean Corpuscular Volume 87.7 fL (78.0-98.0); Mean Platelet Volume 9.3 fL (7.4-10.4); Platelet Count 208 thou/uL (130-400); RBC Distribution Width 13.1 % (11.5-14.5); Red Blood Cell (RBC) Count 3.63 mill/uL (4.20-5.40); White Blood Cell (WBC) Count 7.4 thou/uL (4.8-10.8)
[2019-08-22] MEDS ORDERED: MORPHINE 5 MG/10 ML PF VIAL ONE (10:40)
[2019-08-22] MEDS ORDERED: Dexamethasone 4 mg/ml Vial ONE (10:40)
[2019-08-22] MEDS ORDERED: diphenhydrAMINE 50 MG/ML VIAL ONE ×2 (10:40→11:08)
[2019-08-22] MEDS ORDERED: Ketorolac Tromethamine 30 MG/ML VIAL ONE ×2 (10:40→11:08)
[2019-08-22] MEDS ORDERED: Ondansetron PF 4 MG/2 ML Vial ONE ×2 (10:40→11:08)
[2019-08-22] MEDS ORDERED: Oxytocin 10 UNITS/ML VIAL ONE (10:40)
[2019-08-22 10:43] VITALS: BMI 29.7
[2019-08-22] MEDS ORDERED: PHENYLEPHRINE-NS 100 MCG/ML 10 ML SYRINGE ONE ×3 (10:50→12:23)
[2019-08-22] MEDS ORDERED: Atropine Sulfate 1 mg/10 ml Syringe ONE ×2 (11:08→12:32)
[2019-08-22] MEDS ORDERED: Dexamethasone 20 MG/5 ML VIAL ONE (11:08)
[2019-08-22] MEDS ORDERED: ePHEDrine 50 MG/ML VIAL ONE (11:08)
[2019-08-22 11:12] LABS: HBSAg Index 0.24 S/CO (0-0.99); Hep B Surf Ag Non-Reactive S/CO (NonReactive)
[2019-08-22 11:14] LABS: Syphilis Antibody Nonreactive (Nonreactive); Syphilis Antibody Index 0.03 S/CO (<1.00 Non-Reactive)
[2019-08-22] MEDS ORDERED: ePHEDrine/0.9% NaCl/PF SYRINGE 50 mg/10 ml ONE ×2 (12:29)
[2019-08-22] MEDS ORDERED: Ondansetron HCl/PF 4 MG/2 ML Vial IVP PRN (13:10)
[2019-08-22] MEDS ORDERED: HYDROmorphone 2 MG/ML VIAL SLOW IVP PRN (13:10)
[2019-08-22] MEDS ORDERED: Promethazine HCl 25 MG SUPP PR PRN (13:10)
[2019-08-22] MEDS ORDERED: diphenhydrAMINE 50 MG/ML VIAL IVP PRN (13:10)
[2019-08-22] MEDS ORDERED: Naloxone HCl 0.4 mg/ml Vial IV PRN (13:10)
[2019-08-22] MEDS ORDERED: Naloxone HCl 0.4 mg/ml Vial IVP PRN ×2 (13:10)
[2019-08-22] MEDS ORDERED: L&D-Morphine 4 MG/ML VIAL SLOW IVP PRN (13:10)
[2019-08-22] MEDS ORDERED: Meperidine HCl/PF 25 MG/ML VIAL SLOW IVP PRN (13:10)
[2019-08-22] MEDS ORDERED: Communication Order-Pharmacy FS SCH (13:15)
--- NOTE | 2019-08-22 13:41 | PDOC.OPDEL ---
OB Operative/Delivery Note Delivery Dr/Surgeon: Dr. Matias with Dr. Smith attending Assist: Dr. Ziegler Pre-Delivery Diagnosis: scheduled section Procedure/Post Delivery Dx: repeat low transverse CS Weeks gestation: 39 (39w3d) Anesthesia: spinal - Findings A Sex: female - Additional Findings/Plan Placenta delivered: manual removal findings: low transverse hysterotomy without extension Estimated blood loss: 500mL Compilations/Other Findings: Preoperative Diagnosis: 1)Term intrauterine 2)Previous Postoperative Diagnosis: 1)Term intrauterine , delivered 2)Previous 3)Moderate uterine adhesions Anesthesia: spinal Indications: The patient is a 24 year old female at 39.3 weeks gestation who presents for a repeat scheduled . Procedure in Detail: After risks, benefits, and alternatives were explained to the patient, she gave informed consent. Pre-operative antibiotics included Cefazolin 2 gram IV. The patient was taken to the operating room and spinal anesthesia was initiated. She was placed in the supine position with a left tilt and prepped and draped in usual sterile fashion. A Pfannenstiel incision was made with a scalpel and carried down to the level of the fascia which was sharply nicked. The fascial cut was extended bilaterally with Vines scissors. The inferior and superior edges of the cut fascial edges were elevated with Anita clamps and the underlying rectus muscles were sharply and bluntly dissected free. The recti were divided digitally and retracted manually. The peritoneum was entered sharply with hemostats and metzembaum scissors and retracted manually. Uterine adhesions noted in the superior/mid aspect of uterus. Bladder blade was placed. A low transverse score was made with the scalpel and the uterus was entered in the midline bluntly. Clear fluid was seen. The hysterotomy was extended manually in a cephalocaudal fashion. The was noted to be vertex and was easily delivered by fundal pressure. Mouth and nares were bulb suctioned. Cord clamped and cut and grossly normal female was handed to waiting nurse. Cord blood was obtained. Placenta was manually extracted, found to be intact with 3 vessel cord and discarded. The uterus was unable to be externalized due to adhesions. The endometrium was curetted with a dry lap. The bladder blade was replaced and the uterus was closed with a running locking #1 Monocryl. Following this hemostasis was noted. The bladder blade was removed and the hysterotomy was again noted to be hemostatic. The fascia was closed with a running non-locking 0-PDS suture. The subcutaneous tissue was irrigated and there were a few bleeding areas that were cauterized with the bovie. The skin was closed with 4-0 monocryl sutures and dermabond was placed. All counts were correct. The patient tolerated the procedure well and was taken to the recovery room in stable condition. Time of delivery: 1243 on 08/22/19 Estimated Blood Loss: 500 ml Complications: None Specimens: Cord blood sent to lab for blood type Findings: Grossly normal female infant. Grossly normal placenta with 3 vessel cord discarded. Drains: Chambers to gravity draining clear urine Post delivery plan: routine recovery Addendum - Attending - Attending Attestation Date/Time: 08/22/19 4779 I was present and scrubbed for the entire case until fascia was closed, I then handed off to Dr. Clark for the remainder.
[2019-08-22] MEDS ORDERED: Lanolin Ointment 7 GM TUBE TOP PRN (13:55)
[2019-08-22] MEDS ORDERED: Adacel (T-DAP) 0.5 ML SYRINGE IM ONE (13:55)
[2019-08-22] MEDS ORDERED: Simethicone Chewable 80 MG TAB PO PRN (13:55)
[2019-08-22] MEDS: Ketorolac Tromethamine 30 MG/ML VIAL IVP SCH (19:49)
[2019-08-22] MEDS: Docusate Calcium (SURFAK) 240 MG CAP PO SCH (21:11)
[2019-08-22] MEDS: Ferrous Sulfate 325 MG TAB PO SCH (21:11)
[2019-08-23] MEDS ORDERED: HYDROcodone/Acetaminophen 5/325 mg Tablet PO PRN ×2 (01:15)
[2019-08-23] MEDS: Ketorolac Tromethamine 30 MG/ML VIAL IVP SCH ×3 (02:32→16:29)
[2019-08-23 06:20] LABS: Hemoglobin 8.8 g/dL (12.0-16.0); Mean Corpuscular HGB CONC 34.3 g/dL (32.0-36.0); Mean Corpuscular Hemoglobin 30.6 pg (27.0-31.0); Mean Corpuscular Volume 89.1 fL (78.0-98.0); Mean Platelet Volume 8.8 fL (7.4-10.4); Platelet Count 173 thou/uL (130-400); Red Blood Cell (RBC) Count 2.86 mill/uL (4.20-5.40); White Blood Cell (WBC) Count 9.2 thou/uL (4.8-10.8)
--- NOTE | 2019-08-23 06:23 | PDOC.PP ---
Post Progress Note Post Day #: 1 Subjective: Doing well this morning, no concerns, no acute events overnight. Gorman with good UOP and removed this morning prior to visit, tolerating full liquids without n/v, eager to advance diet, minimal pain that is well-controlled with PO meds, lochia less than normal period, eager to ambulate, no BM, + flatus, no CP/SOB/fever/chills/n/v/RIVERS/LE edema. PO intake tolerated: yes Vital Signs (12 hours) Temp Pulse Resp BP Pulse Ox 08/23/19 05:15 97.6 F 56 L 16 88/55 L 96 08/22/19 23:45 98.2 F 59 L 16 105/56 L 97 08/22/19 19:43 98 08/22/19 19:18 98.8 F 60 16 93/54 L 98 Weight Weight 83.461 kg - Physical Examination General: NAD Cardiovascular: no m/r/g, RRR Respiratory: clear to auscultation bilaterally, non-labored breathing Abdominal: + bowel sounds, lochia (less than period), no distention, appropriately TTP Fundus firm & at: umbilicus Extremities: negative homans (B) (no edema) Skin: CS incision dry & intact (dressing in place, clean and dry), no rash Neurological: no gross focal deficits Psychiatric: A&Ox3 Result Diagrams: 08/23/19 06:07 Additional Labs: Post Labs Blood Type A POSITIVE 08/22/19 10:22 Hep Bs Antigen Non-Reactive S/CO (NonReactive) 08/22/19 10:22 (1) S/P repeat low transverse Code(s): Z98.891 - HISTORY OF UTERINE SCAR FROM PREVIOUS SURGERY Status: Acute - Assessment/Plan 24yo @39.3 by LMP c/w 11.2wk sono with h/o asthma and cognitive delay now s/p rLTCS at 1243 on 08/22. #S/p rLTCS POD #1 - @ 39.3 - EBL 500cc - No complications during surgery - Doing very well this morning, pain well controlled, gorman removed, wishing to advance diet and ambulate - Cont [place] and motrin for pain control, encourage ambulation - Will adv diet as tolerated - VSS, will cont to monitor - H/H pending #Cognitive Delay - Case management for dispo needs, apprec recs #Asthma - no acute exacerbation, no controller meds, will cont to monitor IVF: none Diet: Full liquids, advancing as tolerated VTE: SCDs Code: Full Dispo: POD#1 s/p rLTCS, routine c/w care, H/H pending, cont to encourage ambulation and PO intake, will monitor vitals. Anticiapte d/c tomorrow vs Sunday.
[2019-08-23] MEDS: Ferrous Sulfate 325 MG TAB PO SCH ×2 (09:54→21:56)
[2019-08-23] MEDS: Docusate Calcium (SURFAK) 240 MG CAP PO SCH ×2 (09:54→21:56)
[2019-08-23] MEDS: Prenatal Vitamin 1 TAB PO SCH (09:54)
[2019-08-23] MEDS ORDERED: diphenhydrAMINE 25 MG CAP PO PRN (11:08)
[2019-08-23] MEDS: Ibuprofen 800 MG TAB PO SCH ×2 (13:52→21:56)
[2019-08-24] MEDS: Ibuprofen 800 MG TAB PO SCH ×2 (03:04→11:09)
--- NOTE | 2019-08-24 06:14 | PDOC.PP ---
Post Progress Note Post Day #: 2 Subjective: Doing very well this morning, no acute events overnight, slept well. Eager for discharge. Ambulating frequently, voiding without difficulty, tolerating PO without n/v, denies fever/chills CP or SOB, Lochia decreased and less than normal period, endorses period-like cramping but well-controlled with motrin and prn norco, no BM but +flatus. PO intake tolerated: yes Flatus: yes Ambulation: yes Vital Signs (12 hours) Temp Pulse Resp BP Pulse Ox 08/24/19 05:30 98.2 F 73 16 105/57 L 99 08/24/19 00:30 98.6 F 79 100/51 L 08/23/19 19:45 98.1 F 61 20 102/61 99 Weight Weight 83.461 kg - Physical Examination General: NAD Cardiovascular: no m/r/g, RRR Respiratory: clear to auscultation bilaterally Abdominal: + bowel sounds, lochia (decreased, less than normal period per pt report), no distention, appropriately TTP Fundus firm & at: umbilicus Extremities: negative homans (B) (no LE edema) Skin: CS incision dry & intact Neurological: no gross focal deficits Psychiatric: A&Ox3, normal affect Result Diagrams: 08/23/19 06:07 Additional Labs: Post Labs Blood Type A POSITIVE 08/22/19 10:22 Hep Bs Antigen Non-Reactive S/CO (NonReactive) 08/22/19 10:22 (1) S/P repeat low transverse Code(s): Z98.891 - HISTORY OF UTERINE SCAR FROM PREVIOUS SURGERY Status: Acute (2) Anemia Code(s): D64.9 - ANEMIA, UNSPECIFIED Status: Acute - Assessment/Plan 24yo @39.3 by LMP c/w 11.2wk sono with h/o asthma and cognitive delay now s/p rLTCS at 1243 on 08/22, POD#2 #S/p rLTCS POD #2 - @ 39.3 - EBL 500cc, No complications during surgery - Doing very well this morning, pain well controlled, tolerating PO, ambulating frequency, voiding without difficulty - Cont [place] and motrin for pain control, encourage ambulation - VSS, will cont to monitor #Anemia - Hb 10.8->8.8, will cont on PO iron upon discharge and will need outpatient f/u , no acute s/s of anemia and lochia decreasing #Cognitive Delay - Case management for dispo needs, apprec recs #Asthma - no acute exacerbation, no controller meds, will cont to monitor IVF: none Diet: Full VTE: SCDs Code: Full Dispo: POD#2 s/p rLTCS, routine care, cont to encourage ambulation and PO intake, will monitor vitals. Anticipate Today vs tomorrow pending clinical course. Plan discussed with pt at beside and voiced agreement and understanding of the above plan.
[2019-08-24] MEDS: Docusate Calcium (SURFAK) 240 MG CAP PO SCH (11:08)
[2019-08-24] MEDS: Prenatal Vitamin 1 TAB PO SCH (11:08)
[2019-08-24] MEDS: Ferrous Sulfate 325 MG TAB PO SCH (11:08)
[2019-08-24 14:02] VITALS: BP 115/60; TEMP 98.5
--- NOTE | 2019-08-26 06:03 | PQF ---
ALONDRA MEHTA [id number] CLINICAL DOCUMENTATION CLARIFICATION FORM: POST DISCHARGE Addendum to original discharge summary date: ____ Late entry note date: __ DATE: 08-26-19 ATTN:Alondra Bernabe Please exercise your independent, professional judgment in responding to the clarification form. Clinical indicators are provided on the bottom of this form for your review Can you please indicate the specificity of anemia based on the indicators below. Please check appropriate box(s): [ x ] Acute blood loss anemia [ ] Acute on chronic blood loss anemia [ ] Post-op anemia related to acute blood loss [ ] Chronic anemia [ ] blood loos [ ] Hemolytic [ ] Simple [ ] Anemia Unspecified [ ] Other diagnosis please specify [ ] Unable to determine For continuity of documentation, please document condition throughout progress notes and discharge summary. Thank You. CLINICAL INDICATORS: PN 10/[address] Walker Anemia hb 10.8>8.8 PN 10/[address] Walker EBL 500 cc PN 10/[address] Walker no acute signs and symptoms of anemia and lochia decreasing Laboratory= Hgb=10.8, 8.8 Hct=31.8, 25.5 RISK FACTORS: DS- 39 weeks AOG DS- Repeat LTCS TREATMENTS: MAR- IV Fluids PN 10/6-Hgb Hct monitoring PN 10/6-Continue PO iron upon discharge (This form is maintained as a part of the permanent medical record) 2014 [employer] All Rights Reserved [email or web address] [not provided] MTDD
== END 2019-08-24 13:00 | disposition home or self-care (01) | DRG 787 ==
LOC: L&D-LIB 09:21 → 3SW 15:50
PROVIDERS: ADMIT Emergency Medicine; ATTEND Emergency Medicine
PROC: 10D00Z1 Extraction of Products of Conception, Low, Open Approach (ICD-10-PCS; principal; 2019-08-22)
DX: O34.211 Maternal care for low transverse scar from previous cesarean delivery (principal); D62 Acute posthemorrhagic anemia; Z3A.39 39 weeks gestation of pregnancy; Z37.0 Single live birth; J45.909 Unspecified asthma, uncomplicated; O99.52 Diseases of the respiratory system complicating childbirth; R41.89 Other symptoms and signs involving cognitive functions and awareness; O90.81 Anemia of the puerperium
CPT/HCPCS: 36415; 85027; 86780; 86850; 86900; 86901; 87340; J0461; J0690; J1100; J1200; J1885; J2274; J2405; J2590; J3490

== ENCOUNTER 2020-08-13 08:12 | Outpatient (CLI) | payer MEDICAID, OTHER ==
[2020-08-14 14:53] LABS: SARS-CoV-2 MS2 Positive; SARS-CoV-2 N Gene Negative; SARS-CoV-2 S Gene Negative; SARS-CoV-2 by NAA Not Detected (NotDetected); SARS-CoV-2 orf1ab Negative
== END 2020-08-13 08:13 | disposition home or self-care (01) ==
LOC: LABBT 08:12
PROVIDERS: ATTEND Family Medicine
DX: Z20.828 Contact with and (suspected) exposure to other viral communicable diseases (principal)
CPT/HCPCS: 87635; U0003

== ENCOUNTER 2020-08-17 06:45 | Inpatient (IN) | payer OTHER ==
--- NOTE | 2020-08-16 14:13 | PDOC.FPROB ---
FMR OB H&P: HPI - History of Present Illness Chief Complaint: scheduled rLTCS Indentification: 25 y/o @ 39.2 weeks dated by 15.5 week sono History of Present Illness: pmhx of anemia of , short IPI, and bipolar/depression Presents for repeat scheduled LTCS reports good fertal movements. Denies CTX, LOF, vag bleeding or D/c. Pt states she is a little anxious about the procedure. Primary Care Physician: [facility]- Dr. Jarrell FMR OB H&P: Current - Care : 4 Para: 2 Gestational age: 39.2 Due date: 08/22/20 Dating Criteria: 15.5 week sono Course/Complications: Short IPI Mild intermittent asthma- stable Mild anemia or - OB Labs Blood type: A RH: positive Antibody Screen: negative HIV: negative RPR: negative HepBsAg: negative Rubella: immune Gonorrhea: negative Chlamydia: negative Pap Smear: NILM 12/2018 GBS: negative - Anatomy Survey Anatomy survey: dated by 15.5 wk sono Growth on 06/28/20: 67% hadlock FMR OB H&P: History - Past Medical History PMH: Depression/Bipolar Mild Intermittent Asthma SAB Hx of Mild B Pyeloectasis in , resolved - OB History OB History: Preg #1: 12/2015, emergent pLTCS due to concerns Preg #2: SAB 12/2017, no instrumentation or surgery required Preg #3: 08/2019, rLTCS - [employer] AND FORMER History [employer] History: Pap NILM 12/2018 - Surgical History Sx History: X2 c-sections - Social History Social History: Denies TAD - Family History Family History: Denies any family medical history FMR OB H&P: Medications - Current Home Medications: Medication Instructions Recorded Confirmed Type Vit No.126/Iron/Folic 1 capsule PO DAILY #30 tablet 08/05/19 08/17/20 Rx [Classic ] Allergies/Adverse Reactions: Allergies Allergy/AdvReac Type Severity Reaction Status Date / Time No Known Allergies Allergy Verified 08/22/19 10:32 FMR OB H&P: ROS - Review of Systems General: denies: fever/chills, fatigue Eyes: denies: vision changes, double vision, scotomas ENT: denies: nasal congestion, frequent nose bleed Cardiovascular: denies: chest pain, edema Respiratory: denies: cough, congestion, shortness of breath Gastrointestinal: denies: abdominal pain, nausea, vomiting, diarrhea Genitourinary (Female): denies: dysuria, hematuria, vaginal discharge, vaginal bleeding, contractions Musculoskeletal: denies: pain, swelling Neurologic: denies: seizures, weakness Integumentary: denies: rash, hair changes Breast: denies: skin changes Endocrine: denies: polydipsia, polyuria Psychological: reports: depression (hx of) FMR OB H&P: Vital Signs - Maternal Vital signs: BP : 134/76 HR 75 - Heart Tones Baseline: 130 Variability: moderate Acceleration: present Deceleration: absent Category: category 1 [place] contractions every: Q5-7 min FMR OB H&P: Physical Exam - Physical Exam General: NAD, awake, alert and oriented HEENT: normocephalic and atraumatic, PERRLA, EOMI, MMM, no scleral icterus, grossly normal hearing, normal nasal mucosa Neck: supple, FROM, trachea midline, no LAD, no JVD Chest: non-tender to palpation, no lesions Breast: symmetric Heart: RRR, normal S1/S2, no murmurs/rubs/gallops, pulses present, no edema General: CTAB, no respiratory distress, good air movement, no rales/rhonchi, no wheezing, no retractions Abdomen: soft, gravid, non-tender, bowel sound present, no masses, no hernias Musculoskeletal: normal gait and station, pulses present, FROM in all four extremities, no misalignment/asymmetry, no atrophy Neurological: cranial nerves II through XII intact, sensation to pain,touch and proprioception grossly normal, DTR +2, no clonus, no tremor, no focal deficit Skin: no rash, good tugor, capillary refill <2 seconds, no jaundice Lymphatic: no unusual bruising or bleeding, no purpura, no petechia, no LAD Psychiatric: intact recent and remote memory, good judgement and insight, normal mood and affect - Pelvic Exam Vulva: normal hair distribution, appropriate tatyana stage FMR OB H&P: A/P - Problem List (1) Anemia Current Visit: No Status: Acute Code(s): D64.9 - ANEMIA, UNSPECIFIED (2) S/P repeat low transverse Current Visit: No Status: Acute Code(s): Z98.891 - HISTORY OF UTERINE SCAR FROM PREVIOUS SURGERY (3) Third trimester Current Visit: No Status: Acute Code(s): Z34.93 - ENCNTR FOR SUPRVSN OF NORMAL PREG, UNSP, THIRD TRIMESTER Disposition: stable, admit for scheduled rLTCS inpatient >2 Hx nights anticipated Discussion: Date/Time: 08/16/20 1410 25 y/o @ 39.2 wks dated by 15.5 wks sono JOSIAH: 08/22/20 PCP: Dr. Jarrell , [facility] 1. sIUP @ 39.2 weeks by 15.5 wk sono - scheduled rLTCS due to previous X2. - GBS negative 2. scheduled rLTCS - 2 prior c-sections. - ancef 2 g for PPX 3. Short IPI - Growth MFM on 06/28/20: 67% hadlock 4. Mild Intermittent asthma - stable - avoid hemabate 5. Hx of SAB - no instrumentation 6. Hx of Depression/Bipolar -Off medications, stable This H&P was discussed with Dr. Miller who agree with the above documentation and plan. Addendum - Attending - Attending Attestation Date/Time: 08/17/20 1207 I personally evaluated the patient and discussed the management with Dr. Jarrell I agree with the History, Examination, Assessment and Plan documented above with any addition or exceptions noted below- 25 yo @39.2 weeks here for repeat C/S. Denies any ctx, LOF, VB. (+)FM. Afebrile VSS Exam repeated by me and agree with resident's documentation. Labs: H/H=10.5/30.8. Ttn=906 A/P: 1) IUP @39.2 weeks with h/o prior C/S x 2 here for repeat C/S. Risks/benefits discussed and desires to proceed. Consent signed.
[2020-08-17] MEDS ORDERED: hydrALAZINE 20 MG/ML VIAL SLOW IVP PRN ×2 (07:08→11:44)
[2020-08-17] MEDS ORDERED: Promethazine HCl 25 MG/ML VIAL IM PRN ×2 (07:08→08:23)
[2020-08-17] MEDS ORDERED: Ondansetron PF 4 MG/2 ML Vial IVP PRN ×3 (07:08→13:59)
[2020-08-17] MEDS ORDERED: CEFAZOLIN 2 GM in Premix Bag 1 BAG IVPB SCH (07:15)
[2020-08-17] MEDS ORDERED: Bicitra 30 ML UDCUP PO SCH (07:15)
[2020-08-17] MEDS: Lactated Ringer's 1,000 ML IV SCH ×2 (07:15→20:11)
[2020-08-17 07:17] VITALS: BMI 34.0
--- NOTE | 2020-08-17 07:22 | PDOC.OPDEL ---
OB Operative/Delivery Note Delivery Dr/Surgeon: Dr. Rae Christensen with Dr. Miller attending Pre-Delivery Diagnosis: scheduled section Procedure/Post Delivery Dx: repeat low transverse CS Weeks gestation: 39 (2 days ) Anesthesia: spinal - Additional Findings/Plan Placenta delivered: manual removal findings: low transverse hysterotomy without extension, other (adhesions and scar tissue overlying rectus muscle and uterus to anterior abd wall. Heart shaped uterus.) Compilations/Other Findings: Date of Procedure: 08/17/20 Resident Surgeon: Becki Attending Surgeon: Dr. Gurjit Lieberman. Procedure: Repeat low transverse caesarean section Preoperative Diagnosis: 1)Term intrauterine 2)Previous 3)Anemia of Postoperative Diagnosis: 1)Term intrauterine 2)Previous 3)Anemia of Anesthesia: spinal Indications: The patient is a 25 year old G4,P2012 female at 39.2 weeks gestation who presents for a repeat scheduled . Procedure in Detail: After risks, benefits, and alternatives were explained to the patient, she gave informed consent. Pre-operative antibiotics included Cefazolin 2 gram IV. The patient was taken to the operating room and spinal anesthesia was initiated. She was placed in the supine position with a left tilt and prepped and draped in usual sterile fashion. A Pfannenstiel incision was made with a scalpel and carried down to the level of the fascia which was sharply nicked. The fascial cut was extended bilaterally with Vines sissors. The inferior and superior edges of the cut fascial edges were elevated with Anita clamps and the underlying rectus muscles were sharply and bluntly dissected fr ee. The recti had extensive adhesions and scar tissue present. At this point, Dr. Miller palpated through a small entry through the peritoneum, and palpated more adhesions of anterior abd wall to uterus and omentum. Dr. Cagle, [employer] hospitalist was called in for assistance. The adhesions were attended to by Dr. Miller and Dr. Cagle. The rectus muscle was bluntly and sharply dissected carefully as the bladder was adhered laterally. Bladder blade was placed. A low transverse score was made with the scalpel and the uterus was entered in the midline with the scalpel. Clear fluid was seen. The hysterotomy was extended manually. The was noted to be vertex, ROT and was not easily delivered by fundal pressure. Dr. Cagle stepped into position to attempt delivery. After attempt failed, vacuum extractor was placed on infants head for delivery. The was delivered after one pop off and 2 pulls of vacuum extractor. Mouth and nares were bulb suctioned. Cord clamped and cut and male infant was handed to waiting nurse immediately, as infant was not crying and did not have good tone. Cord blood and blood gas was obtained. Placenta was manually extracted, found to be intact with 3 vessel cord and discarded. The endometrium was curetted with a dry lap. The bladder blade was replaced and the uterus was closed with a running locking 1-0 Monocryl followed by a running non-locking 1-0 Monocryl imbricating suture. A running monocryl was placed over an area of serosal and myometrial laceration from adhesions to uterus. Following this hemostasis was noted. The abdomen was irrigated with saline and suctioned free of clots. The hysterotomy was again noted to be hemostatic. The rectus muscle was re-approximated with a 3-0 chromic. The fascia was closed with a running non-locking PDS suture. The subcutaneous tissue was irrigated and there were no bleeders. Subcutaneous space was closed with 3 interrupted 3-0 chromic suture. The skin was approximated with rod and a pressure dressing was placed. All counts were correct. The patient tolerated the procedure well and was taken to the recovery room in stable condition. Quantitative Blood Loss: 546 mL Complications: adhesions and scar tissue over rectus and anterior abd wall to uterus. Difficulty with delivery of fetus, requiring vacuum assist. Specimens: Cord blood sent to lab for blood type. Cord blood gas. Findings: Grossly normal male infant with Apgars of 1 and 9. Grossly normal placenta with 3 vessel cord discarded. Drains: Chambers to gravity draining clear urine approximately 100 ml. Post delivery plan: recovery in LICU Addendum - Attending - Attending Attestation Date/Time: 08/17/20 1210 I was present and assisted with repeat LCT C/S for this 25 yo @39.2 weeks. Dense adhesions between anterior abdominal wall and uterus encountered - assisted by hospitalist. Viable male infant in vertex presentation delivered with vacuum assistance (1 pop-off). Apgars 1/8. QBL 501mL. Infant ot nursery in stable condition and mother to RR in stable condition. Residents: Wesly/Rae.
[2020-08-17] MEDS ORDERED: EPHEDRINE 25 MG/5 ML SYRINGE ONE (07:32)
[2020-08-17] MEDS ORDERED: Oxytocin 10 UNITS/ML VIAL ONE ×2 (07:32→09:06)
[2020-08-17] MEDS ORDERED: Ondansetron PF 4 MG/2 ML Vial ONE (07:32)
[2020-08-17 07:55] LABS: Hemoglobin 10.5 g/dL (12.0-16.0); Mean Corpuscular HGB CONC 33.9 g/dL (32.0-36.0); Mean Corpuscular Hemoglobin 29.2 pg (27.0-31.0); Mean Platelet Volume 10.5 fL (7.4-10.4); Platelet Count 184 thou/uL (130-400); RBC Distribution Width 14.4 % (11.5-14.5); Red Blood Cell (RBC) Count 3.59 mill/uL (4.20-5.40); White Blood Cell (WBC) Count 6.3 thou/uL (4.8-10.8)
[2020-08-17 08:00] LABS: HBSAg Index 0.18 S/CO (0-0.99); Hep B Surf Ag Non-Reactive S/CO (NonReactive); Syphilis Antibody Nonreactive (Nonreactive); Syphilis Antibody Index 0.03 S/CO (<1.00 Non-Reactive)
[2020-08-17] MEDS ORDERED: Metoclopramide HCl 10 MG/2 ML VIAL ONE (08:10)
[2020-08-17] MEDS ORDERED: Ketorolac Tromethamine 30 MG/ML VIAL IVP PRN (08:23)
[2020-08-17] MEDS ORDERED: Promethazine HCl 25 MG SUPP PR PRN (08:23)
[2020-08-17] MEDS ORDERED: HYDROmorphone 2 MG/ML VIAL SLOW IVP PRN (08:23)
[2020-08-17] MEDS ORDERED: Ondansetron HCl/PF 4 MG/2 ML Vial IVP PRN (08:23)
[2020-08-17] MEDS ORDERED: L&D-Morphine 4 MG/ML VIAL SLOW IVP PRN (08:23)
[2020-08-17] MEDS ORDERED: Naloxone HCl 0.4 mg/ml Vial IV PRN (08:23)
[2020-08-17] MEDS ORDERED: Meperidine HCl/PF 25 MG/ML VIAL SLOW IVP PRN (08:23)
[2020-08-17] MEDS ORDERED: Naloxone HCl 0.4 mg/ml Vial IVP PRN ×2 (08:23)
[2020-08-17] MEDS ORDERED: diphenhydrAMINE 50 MG/ML VIAL IVP PRN (08:23)
[2020-08-17] MEDS ORDERED: Communication Order-Pharmacy FS SCH (08:30)
[2020-08-17] MEDS ORDERED: Ketorolac Tromethamine 30 MG/ML VIAL IVP SCH (08:30)
[2020-08-17] MEDS ORDERED: Fentanyl 100 MCG/2 ML VIAL ONE (09:03)
[2020-08-17 09:10] LABS: Actual Bicarbonate (HCO3a) 24.4 mEq/L (22-28); Base Excess (BEa) -6.5 mEq/L (-2.0 to +3.0)
[2020-08-17 09:13] LABS: Actual Bicarbonate (HCO3v) 25 mEq/L (22-28); Base Excess -5.7 mEq/L (-2.0 to +3.0)
[2020-08-17 09:14] LABS: pH (Cord, venous) 7.17 (7.32-7.43)
[2020-08-17] MEDS ORDERED: Ketorolac Tromethamine 30 MG/ML VIAL ONE (10:04)
[2020-08-17] MEDS ORDERED: Acetaminophen 325 MG TAB PO PRN (11:44)
[2020-08-17] MEDS ORDERED: Methylergonovine 0.2 MG/ML VIAL IM PRN (11:44)
[2020-08-17] MEDS ORDERED: Misoprostol 200 MCG TAB PR PRN (11:44)
[2020-08-17] MEDS ORDERED: Lanolin Ointment 7 GM TUBE TOP PRN (11:44)
[2020-08-17] MEDS ORDERED: NS / Oxytocin 40 units/1000ml 1,000 ML IV SCH (11:44)
[2020-08-17] MEDS: Ibuprofen 800 MG TAB PO SCH (12:58)
--- NOTE | 2020-08-17 13:54 | PDOC.BPN ---
- Brief Progress Note 4 hr post op note Patient reports that she is doing well, just tired. Abdomen hurts only when pressed on. She has not had flatus, denies ambulation, is not tolerating PO at this time. Vomitted after eating ice chips, not currently nauseous. VS: Tmax 98.7, HR 69-85 RR 16 SpO2 97 BP 103/67 UOP: ~50 mL clear UOP in gorman bag PE: Cardiac: RRR no MRG, no edema Pulm: CTAB Abdomen: incision bandaged, no leakage, appropriately TTP on uterine fundus, no RUQ pain. MSK: no edema Plan: Continue routine PP care Monitor VS & UOP, encourage ambulation, ADAT, pain management PRN Zofran
--- NOTE | 2020-08-17 18:15 | CON ---
DATE OF CONSULTATION: 08/17/2020 PRIMARY OB: Vanessa Miller MD HISTORY OF PRESENT ILLNESS: The patient is a 25-year-old female, who is present for a scheduled repeat . She has a history of three prior C-sections. Intraoperatively, the primary team found that the patient had multiple dense adhesions in the anterior and lower uterine segments and I was consulted to assist. At this time when I presented, the patient was already under general anesthesia, draped, and the incision had been taken down already to the level of the uterus. Immediately noted was some dense adhesions anteriorly and inferiorly between the anterior abdominal wall, bladder, and the lower uterine segment. These thick bandlike adhesions most superior to this area were evaluated. Behind it, there was noted to be a plane on the patient's left side, that plane was developed and those bands then were sharply dissected with Bovie in an attempt to create a bladder flap. As we moved across, these thick adhesions became thin filmy adhesions. The bladder was noted to become more and proximity to the site of surgery and care was taken to keep the bladder away from the surgical dissection. After evaluation of this particular plane, decision was made that there was still a thin filmy adhesive layer covering the entire lower uterine segment, this was entered into sharply and once we were behind it, a nice bladder flap was created. There were some persistent dense and filmy adhesions to the patient's right lateral side, which were taken down to accommodate the bladder blade effectively. Once this was done, attention was placed anteriorly and superiorly and was noted to have good area free of adhesions. Inspection of the incision and room for delivery, the decision was made to extend to do Maylard cut on the patient's muscles on the patient's right side and on the left side to a lesser degree getting more adequate room for delivery. With this done, a bladder blade was inserted and the patient was then placed back in the care of the primary team and at their request, I remained. At time of delivery, they had difficulty delivering the head and some point in time, I came back into the field, evaluated, and noted that the head was having difficulty passing through the existing opening. A vacuum also was called to the sterile field. This vacuum was placed once and upon fundal pressure and delivery, it was unsuccessful and popped off. After further evaluation, the Maylard cut was extended a little bit thinking that was the main problem for delivery. The vacuum was placed once again and then upon evaluation was then removed and placed into what believed to be a more appropriate place along the sagittal line and more central. With that, the head delivered easily into the sterile field and the infant was delivered to sterile field and the cord was clamped and cut and the was handed off to the waiting attendant for evaluation. The inspection of the hysterotomy revealed no extensions. At this time, the primary team resumed care of the patient. Total time in the room was approximately 20 to 30 minutes. Job ID: [id number]
[2020-08-17] MEDS: Docusate Calcium (SURFAK) 240 MG CAP PO SCH (22:10)
[2020-08-18] MEDS: Ferrous Sulfate 325 MG TAB PO SCH ×3 (00:10→22:12)
[2020-08-18] MEDS: Ibuprofen 800 MG TAB PO SCH ×4 (00:11→22:12)
[2020-08-18 06:26] LABS: Hemoglobin 9.2 g/dL (12.0-16.0); Mean Corpuscular HGB CONC 33.6 g/dL (32.0-36.0); Mean Corpuscular Hemoglobin 29.2 pg (27.0-31.0); Mean Corpuscular Volume 86.8 fL (78.0-98.0); Mean Platelet Volume 10.8 fL (7.4-10.4); Platelet Count 178 thou/uL (130-400); RBC Distribution Width 14.3 % (11.5-14.5); Red Blood Cell (RBC) Count 3.16 mill/uL (4.20-5.40); White Blood Cell (WBC) Count 7.3 thou/uL (4.8-10.8)
--- NOTE | 2020-08-18 07:28 | PDOC.PP ---
Post Progress Note Post Day #: 1 Subjective: 25 y/o s/p rLTCS X3 pt in stable condition states she has some pain in pelvis with movement. feels very tired. feels the urge to urinate, no urination overnight. tolerated pudding, and passing gas. no BM yet. PO intake tolerated: yes Flatus: yes Ambulation: yes Vital Signs (12 hours) Temp Pulse Resp BP Pulse Ox 08/18/20 04:45 98.4 F 60 16 98/58 L 97 08/18/20 00:20 99 F 62 20 102/57 L 97 08/17/20 20:15 95 Weight Weight 81.647 kg - Physical Examination General: NAD Cardiovascular: RRR Deviation from normal: soft 1/6 systolic murmur Respiratory: clear to auscultation bilaterally, non-labored breathing Abdominal: + bowel sounds, lochia, no distention, appropriately TTP Fundus firm & at: umbilicus Extremities: negative homans (B) Skin: CS incision dry & intact, no rash Neurological: no gross focal deficits Psychiatric: A&Ox3, normal affect Result Diagrams: 08/18/20 05:45 Additional Labs: Post Labs Hep Bs Antigen Non-Reactive S/CO (NonReactive) 08/17/20 07:13 Blood Type A POSITIVE 08/17/20 07:13 (1) Anemia Code(s): D64.9 - ANEMIA, UNSPECIFIED Status: Acute (2) S/P repeat low transverse Code(s): Z98.891 - HISTORY OF UTERINE SCAR FROM PREVIOUS SURGERY Status: Acute (3) Third trimester Code(s): Z34.93 - ENCNTR FOR SUPRVSN OF NORMAL PREG, UNSP, THIRD TRIMESTER Status: Acute - Assessment/Plan 25 y/o --> 3013 delivered @ 39.2 wks dated by 15.5 wks sono via rLTCS on 08/17. PCP: Dr. Jarrell , [facility] 1. rLTCS PP day #1 - pain control with norco, motrin - Bowel regimen - advance diet as tolerated. 2. scheduled rLTCS - 2 prior c-sections. - pt had ancef 2 g for PPX 3. Short IPI - Growth MFM on 06/28/20: 67% hadlock. TAGA 4. Mild Intermittent asthma - stable - avoid hemabate 5. Hx of SAB - no instrumentation 6. Hx of Depression/Bipolar -Off medications, stable - administer Sebastián at PP visit. Addendum - Attending - Attending Attestation Date/Time: 08/18/20 1101 I personally evaluated the patient and discussed the management with Dr. Jarrell I agree with the History, Examination, Assessment and Plan documented above with any addition or exceptions noted below- Patient without complaints. Ambulating. Tolerating diet. Afebrile VSS. A/P: 1) POD#1 s/p R LCT C/S- continue routine care. H/H stable.
[2020-08-18] MEDS: Prenatal Vitamin 1 TAB PO SCH (10:33)
[2020-08-18] MEDS: Docusate Calcium (SURFAK) 240 MG CAP PO SCH ×2 (10:33→22:12)
[2020-08-18] MEDS ORDERED: Adacel (T-DAP) 0.5 ML SYRINGE IM ONE (11:44)
[2020-08-18] MEDS: HYDROcodone/Acetaminophen 5/325 mg Tablet PO PRN (23:46)
[2020-08-19] MEDS: Ibuprofen 800 MG TAB PO SCH (06:13)
--- NOTE | 2020-08-19 07:25 | PDOC.PP ---
Post Progress Note Post Day #: 2 Subjective: Pt doing well, sitting up in chair bonding with well. states she does not want circumcised. passing gas, no BM yet. urinating well. ambulating well. tolerating light diet. states morgan nis well controlled with NORCO. PO intake tolerated: yes Flatus: yes Ambulation: yes Vital Signs (12 hours) Temp Pulse Resp BP 08/18/20 23:54 98.1 F 89 16 112/64 Weight Weight 81.647 kg - Physical Examination General: NAD Cardiovascular: no m/r/g, RRR Respiratory: clear to auscultation bilaterally, non-labored breathing Abdominal: + bowel sounds, lochia, no distention, appropriately TTP Extremities: negative homans (B) Skin: CS incision dry & intact, no rash Neurological: no gross focal deficits Psychiatric: A&Ox3, normal affect Result Diagrams: 08/18/20 05:45 Additional Labs: Post Labs Hep Bs Antigen Non-Reactive S/CO (NonReactive) 08/17/20 07:13 Blood Type A POSITIVE 08/17/20 07:13 (1) Anemia Code(s): D64.9 - ANEMIA, UNSPECIFIED Status: Acute (2) S/P repeat low transverse Code(s): Z98.891 - HISTORY OF UTERINE SCAR FROM PREVIOUS SURGERY Status: Acute (3) Third trimester Code(s): Z34.93 - ENCNTR FOR SUPRVSN OF NORMAL PREG, UNSP, THIRD TRIMESTER Status: Acute - Assessment/Plan 25 y/o --> 3013 delivered @ 39.2 wks dated by 15.5 wks sono via [facility] on 08/17. PCP: Dr. Jarrell , [facility] 1. [facility] PP day #2 - pain control with norco, motrin. d/c with a few days norco script. - Bowel regimen - advance diet as tolerated. 2. scheduled [facility] - 2 prior c-sections. - pt had ancef 2 g for PPX - rec control, and if another desired by specialist due to adhesions. pt understands. 3. Short IPI - Growth MFM on 06/28/20: 67% [place]. infant TAGA 4. Mild Intermittent asthma - stable - avoid hemabate 5. Hx of SAB - no instrumentation 6. Hx of Depression/Bipolar -Off medications, stable - administer [place] at PP visit. Dipos: stable, plan d/c home today Addendum - Attending - Attending Attestation Date/Time: 08/19/20 1122 I personally evaluated the patient and discussed the management with Dr. Jarrell I agree with the History, Examination, Assessment and Plan documented above with any addition or exceptions noted below- Patient without complaints. Ambulating and voiding without difficulty. Afebrile VSS. A/P: 1) POD#2 s/p R LCT C/S- doing very well. Plan to d/c home today. F/U Sunday for staple removal.
[2020-08-19 08:09] VITALS: BP 103/66; TEMP 98
[2020-08-19] MEDS: Ferrous Sulfate 325 MG TAB PO SCH (09:09)
[2020-08-19] MEDS: Docusate Calcium (SURFAK) 240 MG CAP PO SCH (09:09)
[2020-08-19] MEDS: Prenatal Vitamin 1 TAB PO SCH (09:09)
[2020-08-19] MEDS: HYDROcodone/Acetaminophen 5/325 mg Tablet PO PRN (11:18)
== END 2020-08-19 11:49 | disposition home or self-care (01) | DRG 788 ==
LOC: L&D-LIB 06:45 → L&D 09:58 → 3SE 12:22
PROVIDERS: ADMIT Family Medicine; ATTEND Family Medicine
PROC: 10D00Z1 Extraction of Products of Conception, Low, Open Approach (ICD-10-PCS; principal; 2020-08-17)
DX: O34.211 Maternal care for low transverse scar from previous cesarean delivery (principal); N85.8 Other specified noninflammatory disorders of uterus; O99.02 Anemia complicating childbirth; D64.9 Anemia, unspecified; O99.344 Other mental disorders complicating childbirth; F31.9 Bipolar disorder, unspecified; O99.52 Diseases of the respiratory system complicating childbirth; Z3A.39 39 weeks gestation of pregnancy; Z37.0 Single live birth; J45.20 Mild intermittent asthma, uncomplicated; Z20.828 Contact with and (suspected) exposure to other viral communicable diseases
CPT/HCPCS: 36415; 51702; 82805; 85027; 86780; 86850; 86900; 86901; 87340; J0690; J1885; J2270; J2405; J2765; J3010

== ENCOUNTER 2023-05-21 02:57 | Emergency (ER) | payer OTHER ==
[2023-05-21 03:45] LABS: #Eosinphils 0.2 thou/uL (0.0-0.7); #Monocytes 0.6 thou/uL (0.11-0.59); #Neutrophils 7.4 thou/uL (1.40-6.50); %Basophils 0.1 % (0.0-1.0); %Eosinophils 2.1 % (0.0-10.0); %Lymphocytes 16.5 % (21.0-51.0); %Monocytes 5.7 % (0.0-10.0); %Neutrophils 75.3 % (42.0-75.0); Hemoglobin 12.7 g/dL (12.0-16.0); Mean Corpuscular HGB CONC 34.2 g/dL (32.0-36.0); Mean Corpuscular Hemoglobin 29.1 pg (27.0-31.0); Mean Corpuscular Volume 85.1 fl (78.0-98.0); Mean Platelet Volume 10.3 fL (7.4-10.4); Platelet Count 293 10x3/uL (130-400); RBC Distribution Width 13.5 % (11.5-14.5); Red Blood Cell (RBC) Count 4.36 mill/uL (4.20-5.40); White Blood Cell (WBC) Count 9.9 10x3/uL (4.8-10.8)
[2023-05-21] MEDS ORDERED: Ondansetron PF 4 MG/2 ML Vial ONE (03:45)
[2023-05-21 04:36] LABS: ALT (SGPT) 18 U/L (8-55); AST (SGOT) 18 U/L (5-34); Albumin 4.6 g/dL (3.5-5.0); Alkaline Phosphatase 65 U/L (40-110); Anion Gap 13 mmol/L (10-20); BUN (Urea Nitrogen) 9 mg/dL (7.0-18.7); Bilirubin, Total 0.6 mg/dL (0.2-1.2); Calc. Creatinine Clearance 0 mL/min (70-130); Calcium 9.6 mg/dL (7.8-10.44); Carbon Dioxide 23 mmol/L (22-29); Chloride 109 mmol/L (98-107); Estimated GFR 111; Globulin 3.2 g/dL (2.4-3.5); Glucose 110 mg/dL (70-105); Lipase 30 U/L (8-78); Potassium 2.8 mmol/L (3.5-5.1); Protein, Total 7.8 g/dL (6.0-8.3); Sodium 142 mmol/L (136-145)
[2023-05-21 04:57] LABS: BHCG - Serum Negative (NEGATIVE)
[2023-05-21 04:58] LABS: Pregs Control Background? CLEAR/WHITE (CLR/WHITE); Pregs Control Bar Appear? YES (CONTROL BAR)
[2023-05-21 05:42] LABS: Magnesium 1.9 mg/dL (1.6-2.6)
[2023-05-21] MEDS ORDERED: Potassium Chloride 20 MEQ TAB ONE (05:55)
== END 2023-05-21 06:38 | disposition home or self-care (01) ==
LOC: ERS 02:57
DX: R06.02 Shortness of breath (principal); E87.6 Hypokalemia; I10 Essential (primary) hypertension; E03.9 Hypothyroidism, unspecified
CPT/HCPCS: 71045; 80053; 83690; 83735; 84703; 85025; 96374; J2405

== ENCOUNTER 2024-04-11 02:58 | Emergency (ER) | payer OTHER ==
[2024-04-11] MEDS ORDERED: predniSONE 20 MG TAB ONE (03:22)
[2024-04-11] MEDS ORDERED: Ipratropium/Albuterol 3 ML NEB ONE (03:25)
[2024-04-11] MEDS ORDERED: Albuterol 2.5 MG (3 mL) NEB ONE (03:26)
[2024-04-11] MEDS ORDERED: Ondansetron ODT 4 MG TAB ONE (04:03)
== END 2024-04-11 04:06 | disposition home or self-care (01) ==
LOC: ERS 02:58
DX: O99.512 Diseases of the respiratory system complicating pregnancy, second trimester (principal); J45.901 Unspecified asthma with (acute) exacerbation; O10.912 Unspecified pre-existing hypertension complicating pregnancy, second trimester; Z3A.27 27 weeks gestation of pregnancy; Z79.899 Other long term (current) drug therapy
CPT/HCPCS: J7512; J7611; J7620; Q0162